=== PATIENT | female | born 1985 | race Caucasian/White ===

== ENCOUNTER 2024-03-22 08:26 | Day surgery (SDC) | payer OTHER, SELFPAY ==
[2024-03-07 12:53] VITALS: BMI 23.6
--- NOTE | 2024-03-22 07:02 | P.PNAN_ITS ---
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 Patient Data Age: 38 Gender: F Height: 1.7 m Weight: 68.3 kg Allergies Allergy/AdvReac Type Severity Reaction Status Date / Time amoxicillin [From Augmentin] Allergy Hives Verified 03/22/24 09:39 clavulanic acid Allergy Hives Verified 03/22/24 09:39 [From Augmentin] Penicillins Allergy Hives Verified 03/22/24 09:39 Home Medications Medication Instructions Recorded Confirmed Type Lactobacillus 1 cap PO DAILY 03/07/24 03/22/24 History acidophilus-Bifidobac.animalis 2.5 billion cell capsule (Daily Probiotic) levomefolate calcium 15 mg tablet 15 mg PO DAILY 03/07/24 03/22/24 History (L-Methylfolate) nnntvxke-jyj-epih-FA-Ca carb-vit K 1 tablet PO DAILY 03/07/24 03/22/24 History 18 mg iron-400 mcg-500 mg tablet Patient hx anesthesia problems: post op nausea/vomiting Family hx anesthesia problems: none Results Review: All pre-operative results and documents have been reviewed as part of the pre- operative evaluation. FORMERLY [facility], [facility] Past Medical History Medical History (Updated 03/22/24 @ 07:03 by Dhaval Perez DO) PONV (postoperative nausea and vomiting) Surgical History Surgical History (Updated 03/22/24 @ 07:03 by Dhaval Perez DO) H/O: hysterectomy History of tubal ligation Social History Social History Smoking status: Former smoker Tobacco type: cigarettes and e-cigarettes/vaping Second hand tobacco smoke exposure: Yes Alcohol intake: current Drinks per week: 4 Substance use type: does not use Living arrangements: with family Spiritual care concerns: No Anes - Eval Final PreProcedure Day of Procedure 03/22/24 07:02 Patient weight: normal Heart: regular rate and rhythm Lungs: clear to auscultation Airway: Mallampati scale class II Neurological: alert and oriented Last oral intake: >/= 8 hours ASA classification: II Emergent: no Anesthetic plan: proceed Anesthesia type and monitoring: general LMA and standard monitoring Results Review: All pre-operative results and documents have been reviewed as part of the pre- operative evaluation. Informed Consent: The patient's anesthetic plan and its attendant risks and benefits were discussed with the patient/family/POA. Questions were solicited and answers provided to the satisfaction of the patient/family/POA.
[2024-03-22 09:41] VITALS: BP 146/90; PULSE 116; RESP 16; TEMP 37.4; O2SAT 100
[2024-03-22] MEDS: LACTATED RINGERS 1,000 ML 30 ML IV CONT ×2 (09:57→12:39)
[2024-03-22] MEDS: SCOPOLAMINE 1 MG PATCH 1 PATCH TRANSDERM (09:58)
[2024-03-22 10:24] VITALS: BMI 24.9
--- NOTE | 2024-03-22 10:57 | WPDHPUPDATE1 ---
History and Physical Update Update Date/Time: 03/22/24 10:57 History and Physical has been reviewed, including an updated exam of the patient. There are NO changes in the patient's condition. Risks, benefits, and alternatives have been discussed and questions answered. Patient agrees to proceed with procedure.
--- NOTE | 2024-03-22 10:57 | W.PM.PROC2 ---
Procedure Note - Detailed Date of Procedure 03/22/24 Pre-op Diagnosis Micromastia and Breast Ptosis Post-op Diagnosis Same Procedure Performed Bilateral augmentation mammaplasty Surgeon Vlad Gross MD Anesthesia General Findings Bilateral Odalis Messer SoftTouch 485cc Subfascial Right - REF# [id number] SN [id number] Left - REF# [id number] SN [id number] Description of Procedure She is here today for bilateral breast augmentation. Previously and again today the risks, benefits, alternatives were discussed in extensive detail. I wanted her to be very realistic about the risks involved as well as expectations. She understands she has glandular ptosis and will still have this. She understands she is at risk of signficant waterfall deformity. She states she is willing to accept this and if unhappy would proceed with second stage mastopexy (at her expense). We discussed aftercare and what to monitor for. Made sure answered all of her questions to her satisfaction today and consent was obtained. Marked in the preoperative holding area with their verification. The patient was taken to the operating room placed supine on the operating table. Anesthesia was provided by anesthesiology. A surgical time-out was taken. We cleansed the skin and 1% lidocaine and 0.25% Marcaine with epinephrine was used anesthetize as a field block. She was prepped and draped in a standard sterile fashion. Tegaderm nipple Browne were placed. A 15 blade used to make an incision along the inframammary fold. Dissection was continued at 45 degree angle until the chest wall as identified. I created a subfascial pocket in the appropriate dimensions based on our preoperative planning for the implant. I then copiously irrigated with saline solution and verified a strict hemostasis. Next the use a triple antibiotic and Betadine containing solution to irrigate the pocket. I washed my gloves with the triple antibiotic and Betadine solution. We washed the implant immediately upon opening it with this solution and only opened it when we needed it. I used implant funnel and no-touch technique. The implant was introduced into the pocket using the funnel. Having verified positioning of the implant this was closed using 2-0 PDS followed by 3-0 Monocryl in a running subcuticular 4-0 Monocryl followed by tissue glue. Fluffs and surgical bra were placed. Patient was awoke and taken to PACU without difficulty. All instrument sponge counts were correct at the end of the case. Estimated Blood Loss 25 Drains No Packing No Pathology None sent Complications No immediate complications Condition Stable Disposition PACU
[2024-03-22] MEDS: ceFAZolin SODIUM 2 GM/20 ML SW SYRINGE IV PUSH (11:23)
[2024-03-22] MEDS: LIDO 1%/EPINEPHRINE 1:100,000 20 ML VIAL 30 ML INFILTRATE (11:40)
[2024-03-22] MEDS: TRANEXAMIC ACID 1,000 MG/10 ML AMPUL 1000 MG IV PUSH (11:40)
[2024-03-22] MEDS: NACL 0.9% IRRIG POUR BOTTLE 900 ML, GENTAMICIN SULFATE INJ 160 MG, ceFAZolin 2 GM, POVI... IRRIGATION (12:02)
[2024-03-22 12:40] VITALS: BP 123/90; PULSE 133; RESP 18; TEMP 36.1; O2SAT 100
[2024-03-22 12:55] VITALS: BP 139/99; PULSE 103; RESP 15; O2SAT 100
[2024-03-22 13:10] VITALS: BP 116/69; PULSE 100; RESP 20; O2SAT 100
[2024-03-22 13:15] VITALS: BP 135/85; PULSE 106; RESP 20; O2SAT 100
--- NOTE | 2024-03-22 13:17 | WPDANESPN ---
Anes - Prog Note Post-Op Date/Time: 03/22/24 13:17 Cardiovascular status: normal Respiratory status: normal Airway patency: baseline Mental status: baseline Post-Op hydration status: normal Vital Signs: Last Vital Signs Temp 36.1 C L 03/22/24 12:40 Pulse 100 03/22/24 13:10 Resp 20 03/22/24 13:10 BP 116/69 03/22/24 13:10 Pulse Ox 100 03/22/24 13:10 O2 Del Method Room Air 03/22/24 13:10 O2 Flow Rate 4 03/22/24 12:55 Pain Score (VAS): 2 I/O: Intake & Output 03/21/24 03/22/24 03/22/24 23:59 07:59 15:59 Intake Total 1150 Balance 1150 Post-procedural complaints: none Patient Feedback: Patient satisfied with anesthetic care. Other Findings: Patient vital signs back to baseline. Patient denies nausea and vomiting. Patient's pain under control. Patient OK for discharge.
[2024-03-22] MEDS: oxyCODONE HCL (*CRX) 5 MG TAB IR PO (13:35)
[2024-03-22 13:45] VITALS: BP 134/74; PULSE 90; RESP 18; O2SAT 100
== END 2024-03-22 14:06 | disposition home or self-care (01) ==
PROVIDERS: Visit Provider Surgery Plastic and Reconstructive Surgery
PROC: (CPT 19325; principal; 2024-03-22 10:45)
DX: N64.82 Hypoplasia of breast (principal); N64.81 Ptosis of breast
CPT/HCPCS: 19325